=== PATIENT | male | born 1975 | race Caucasian/White ===

== ENCOUNTER 2020-10-12 03:18 | Emergency (ER) | payer OTHER ==
[~2020-10-12 03:18] MED LIST: FLOMAX 0.4 MG0.4 MG PO; IBUPROFEN800 MG PO; NORCO 5-325 TA1 EACH PO; ZOFRAN 4 MG TAB4 MG PO
[2020-10-12 03:42] LABS: HEMOGLOBIN 15.5 gm/dl (14.0-17.5); RED BLOOD COUNT 5.14 M/UL (4.20-5.50); WHITE BLOOD COUNT 10.2 K/UL (4.5-11.0)
[2020-10-12 04:01] LABS: BUN/CREATININE RATIO 14 (0-10)
[2020-10-12] MEDS ORDERED: PERCOCET 5/325 T1 EA PO (05:30)
[2020-10-12] MEDS ORDERED: ZOFRAN ODT 4 MG4 MG GT (05:30)
[2020-10-12] MEDS ORDERED: FLOMAX0.4 MG PO (05:30)
== END 2020-10-12 05:45 | disposition home or self-care (01) ==
LOC: ER1 03:18
PROVIDERS: Family Medicine
DX: N13.2 Hydronephrosis with renal and ureteral calculous obstruction (principal); Z86.73 Personal history of transient ischemic attack (TIA), and cerebral infarction without residual deficits
CPT/HCPCS: 80053; 81001; 83690; 85025; 96374; 96375; 99284; J1885; J2270; J2405

== ENCOUNTER → 2021-07-31 | Outpatient (CLI) | payer OTHER ==
[~2021-07-31] MED LIST changes: +FLOMAX0.4 MG PO; +PERCOCET 5/325 T1 EA PO; +ZOFRAN ODT 4 MG4 MG GT
== END ==
LOC: EXRD 09:10
DX: N20.0 Calculus of kidney (principal)
CPT/HCPCS: 74018